=== PATIENT | female | born 1995 | race Caucasian/White ===

== ENCOUNTER 2016-05-30 13:33 | Emergency (ER) | payer OTHER ==
[2016-05-30 13:55] VITALS: BP 149/72; PULSE 81; TEMP 98.1; BMI 19.7
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
== END 2016-05-30 14:28 | disposition home or self-care (01) ==
LOC: JERFT 13:33
DX: M54.2 Cervicalgia (principal); V43.62XA Car passenger injured in collision with other type car in traffic accident, initial encounter; Y92.488 Other paved roadways as the place of occurrence of the external cause; Y93.89 Activity, other specified
CPT/HCPCS: 99281-25